=== PATIENT | male | born 1985 | race Caucasian/White ===

== ENCOUNTER → 2018-03-27 | Outpatient (CLI) | payer OTHER | LOC: EDSTATUS 16:00 → GIMAGING 19:01 | PROVIDERS: ATTEND Registered Nurse | DX: R06.89 Other abnormalities of breathing (principal); R06.02 Shortness of breath | CPT/HCPCS: 71046-PO ==

== ENCOUNTER 2018-03-28 22:08 | Emergency (ER) | payer SELFPAY ==
[2018-03-28] MEDS ORDERED: LORazepam 1 MG TAB PO ONE (22:48)
--- NOTE | 2018-03-28 22:48 | EDPHY ---
H & P Smoking Status: Never smoked Time Seen by Provider: 03/28/18 22:25 HPI/ROS: CHIEF COMPLAINT: Shortness of breath and trouble focusing HISTORY OF PRESENT ILLNESS: Patient is a 32-year-old male here with no significant past medical history other than stating he has a history of feeling generally anxious now complaining of shortness of breath at trouble focusing for the last week. States that he moved into a new house and has since had a cough and sinus congestion and shortness of breath. He has also experienced intermittent episodes of his heart racing and feeling extremely anxious. He has no known history of panic attacks or the cardiopulmonary disease. He takes no drugs but does drink alcohol socially. Takes no prescribed medications. Denies any vision changes or recent trauma to the head or chest. Denies history of asthma. He was seen at urgent care by his primary care doctor and they have tried prescribing him albuterol and Ativan. He tried albuterol and this made his anxiety worse. 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 REVIEW OF SYSTEMS: Constitutional: No fever, no chills. Eyes: No discharge. ENT: No sore throat. Cardiovascular: No chest pain, no palpitations. Respiratory: No cough, no shortness of breath. Gastrointestinal: No abdominal pain, no vomiting. Genitourinary: No hematuria. Musculoskeletal: No back pain. Skin: No rashes. Neurological: No headache. (Edouard Bartlett) Physical Exam: General Appearance: Alert and no distress. Eyes: Pupils equal and round no injection. Respiratory: Chest is nontender, lungs are clear to auscultation. Cardiac: regular rate and rhythm. Gastrointestinal: Abdomen is soft and nontender, no masses, bowel sounds normal. Musculoskeletal: Neck is supple and nontender. Extremities have full range of motion and are nontender. Skin: No rashes or lesions. (Edouard Bartlett) Constitutional: Initial Vital Signs Temperature (C) 36.4 C 03/28/18 22:11 Heart Rate 86 03/28/18 22:11 Respiratory Rate 16 03/28/18 22:11 Blood Pressure 132/99 H 03/28/18 22:11 O2 Sat (%) 95 03/28/18 22:11 O2 Delivery Mode Room Air Allergies/Adverse Reactions: No Known Allergies Allergy (Unverified 03/28/18 22:15) Home Medications: Medication Instructions Recorded Anastrozole [Arimidex] 1 mg PO 03/28/18 LORazepam [Ativan (*)] 0.5 mg PO BID PRN #10 tab 03/28/18 Levalbuterol Inhaler [Xopenex Hfa 1 puffs IH TID #1 mdi 03/28/18 Inhaler (*)] Medical Decision Making ED Course/Re-evaluation: Patient here with shortness of breath, racing thoughts, palpitations, lightheadedness, fogginess all worsening for the last week or so. Patient most likely has a reactive airway and is being exacerbated by a mold or dust in his new house. Additionally it seems he has an underlying anxiety disorder. He responded well to 1 mg of Ativan in the ER and feels improved. We will try him on Xopenex so he does not have worsening of his anxiety while treating his underlying reactive airway. He was given 10 mg of Decadron which hopefully will alleviate some of his sinus congestion and tightness in his chest. No evidence of ACS, arrhythmia, pulmonary embolism, hypoxia. Patient is stable, alert and oriented and nontoxic appearing at time of discharge. All his questions his 's questions and his parents questions were answered in the emergency room. (Edouard Bartlett) This patient was evaluated and managed by the physician medical support assistant. I have reviewed the documentation and agree with the plan of care.. I am the secondary supervising physician. (Angelina Thomas) - Data Points Laboratory Results: Laboratory Results 03/28/18 23:00 03/28/18 23:00 Medications Given: Discontinued Medications Dexamethasone (Decadron) 12 mg PO EDNOW ONE Stop: 03/28/18 23:56 Last Admin: 03/29/18 00:20 Dose: 12 mg Lorazepam (Ativan) 1 mg PO EDNOW ONE Stop: 03/28/18 22:49 Last Admin: 03/28/18 22:51 Dose: 1 mg Departure - Departure Disposition: Home, Routine, Self-Care Clinical Impression: Anxiety, Reactive airway disease Condition: Good Instructions: Generalized Anxiety Disorder (ED) Referrals: NONE *PRIMARY CARE P,. [Primary Care Provider] - As per Instructions [facility],. [Clinic] - As per Instructions Prescriptions: Levalbuterol Inhaler [Xopenex Hfa Inhaler (*)] 1 puffs IH TID #1 mdi LORazepam [Ativan (*)] 0.5 mg PO BID PRN #10 tab PRN Reason: Anxiety
--- NOTE | 2018-03-28 23:13 | CPEKG ---
Test Reason : OPEN Blood Pressure : / mmHG Vent. Rate : 071 BPM Atrial Rate : 070 BPM P-R Int : 171 ms QRS Dur : 094 ms QT Int : 357 ms P-R-T Axes : 066 078 010 degrees QTc Int : 388 ms Sinus rhythm Confirmed by Angelina Thomas ([id number]) on 03/28/2018 11:12:40 PM Referred By: Confirmed By:Angelina Thomas
[2018-03-28 23:28] LABS: PLATELET COUNT 253 10^3/uL (150-400)
[2018-03-28] MEDS ORDERED: DEXAMETHASONE 4 MG TAB PO ONE (23:55)
[2018-03-29 00:25] VITALS: BP 128/77
== END 2018-03-29 00:25 | disposition home or self-care (01) ==
DX: F41.9 Anxiety disorder, unspecified (principal); J45.909 Unspecified asthma, uncomplicated

== ENCOUNTER 2018-04-15 14:26 | Emergency (ER) | payer OTHER ==
--- NOTE | 2018-04-15 14:40 | EDPHY ---
HPI/HX/ROS/PE/MDM Narrative: CHIEF COMPLAINT: "Tight" breathing HPI: The patient is a 32 y/o male complaining of "tight" breathing and worsening heart burn for the past 3 weeks. Three weeks ago the symptoms began after working out. When the symptoms initially began he presented to the emergency department and had a chest x-ray which revealed reactive airway disease. During this visit his symptoms were improved with Decadron and Ativan; he was also prescribed an inhaler. After presenting to the emergency department he went to [place] for 2 weeks for his new job. While there, his symptoms continued to progress and not improve. He did have one coughing fit, but did not go to the ED. He now reports that the heartburn is not improving, which has not occurred in the past. The heartburn starts when he wakes up and radiates up to his throat. He tried taking Nexium, Zantac, Dexilant, and Tums which has not improved his symptoms. Currently he feels like his chest is heavy and it feels "tight" to breathe. He denies any specific chest pain. The tight breathing is worst at night and does not change with changes in standing, sitting or lying down. This tight breathing also has an associated cough with some mucous. He returned home from [place] 2 days ago and decided to present to the emergency department as he continues to not feel better and does not know what to do to feel better. No fever, headache, chest pain, abdominal pain, urinary or bowel complaints, numbness, paresthesias. REVIEW OF SYSTEMS: Aside from elements discussed in the HPI, a comprehensive 10-point review of systems was reviewed and is negative. PMH: Denies SOCIAL HISTORY: Friend at bedside, employed as a salesman, lives in [place] PHYSICAL EXAM: General: Patient is alert, in no acute distress. ENT: Eyes are normal to inspection. ENT inspection normal. Neck: Normal inspection. Full range of motion. Respiratory: No respiratory distress. Breath sounds normal bilaterally. Cardiovascular: Regular rate and rhythm. Strong peripheral pulses. Normal cap refill. Abdomen: The abdomen is nontender to palpation. There are no peritoneal signs. There are normal bowel sounds. Back: Normal to inspection. No tenderness to palpation. Skin: Normal color. No rash. Warm and dry. Extremities: Normal appearance. Full range of motion. Neuro: Oriented x3. Normal motor function. Normal sensory function. ED Course: 1456: EKG was ordered and interpreted by myself. Please see [employer] system for official reading. 1506: Patient's POC troponin is negative. Chest x-ray: Normal. No significant change from prior. 1532: Reassessed patient and discussed laboratory and imaging findings. I have prescribed him Dexilant for his GERD. I have advised him to follow up with a tenant selector and internal communications specialist. Return precautions provided; patient is comfortable with this plan. MDM: This is a young healthy male with no cardiac risk factors who has been experiencing chest tightness and some dyspnea for several weeks. We performed an extensive workup which is negative. I see no evidence of TAD, ACS, PE, PTX, PNA. - Data Points Imaging: I viewed and interpreted images myself Laboratory Results: Laboratory Results 04/15/18 15:00 04/15/18 15:00 04/15/18 04/15/18 04/15/18 15:06 15:00 15:00 WBC RBC Hgb Hct MCV MCH MCHC RDW Plt Count MPV Neut % (Auto) Lymph % (Auto) [place] % (Auto) Eos % (Auto) Baso % (Auto) Nucleat RBC Rel Count Absolute Neuts (auto) Absolute Lymphs (auto) Absolute Monos (auto) Absolute Eos (auto) Absolute Basos (auto) Absolute Nucleated RBC Immature Gran % Immature Gran # D-Dimer < 0.27 ug/mLFEU ug/mLFEU (0.00-0.50) Sodium 140 mEq/L mEq/L (135-145) Potassium 4.4 mEq/L mEq/L (3.3-5.0) Chloride 101 mEq/L mEq/L (97-110) Carbon Dioxide 28 mEq/l mEq/l (22-31) Anion Gap 11 mEq/L mEq/L (6-14) BUN 16 mg/dL mg/dL (7-23) Creatinine 1.2 mg/dL mg/dL (0.7-1.3) Estimated GFR > 60 Glucose 92 mg/dL mg/dL (70-100) Calcium 10.0 mg/dL mg/dL (8.5-10.4) Total Bilirubin 0.6 mg/dL mg/dL (0.1-1.4) Conjugated Bilirubin 0.3 mg/dL mg/dL (0.0-0.5) Unconjugated Bilirubin 0.3 mg/dL mg/dL (0.0-1.1) AST 27 IU/L IU/L (17-59) ALT 46 IU/L IU/L (21-72) Alkaline Phosphatase 51 IU/L IU/L (38-126) POC Troponin I 0.00 ng/mL ng/mL (0.00-0.08) Total Protein 7.5 g/dL g/dL (6.3-8.2) Albumin 4.4 g/dL g/dL (3.5-5.0) Lipase 99 IU/L IU/L (23-300) 04/15/18 15:00 WBC 6.49 10^3/uL 10^3/uL (3.80-9.50) RBC 4.83 10^6/uL 10^6/uL (4.40-6.38) Hgb 14.9 g/dL g/dL (13.7-17.5) Hct 40.8 % % (40.0-51.0) MCV 84.5 fL fL (81.5-99.8) MCH 30.8 pg pg (27.9-34.1) MCHC 36.5 g/dL g/dL (32.4-36.7) RDW 12.4 % % (11.5-15.2) Plt Count 223 10^3/uL 10^3/uL (150-400) MPV 9.6 fL fL (8.7-11.7) Neut % (Auto) 53.8 % % (39.3-74.2) Lymph % (Auto) 31.1 % % (15.0-45.0) [place] % (Auto) 11.4 % % (4.5-13.0) Eos % (Auto) 2.8 % % (0.6-7.6) Baso % (Auto) 0.6 % % (0.3-1.7) Nucleat RBC Rel Count 0.0 % % (0.0-0.2) Absolute Neuts (auto) 3.49 10^3/uL 10^3/uL (1.70-6.50) Absolute Lymphs (auto) 2.02 10^3/uL 10^3/uL (1.00-3.00) Absolute Monos (auto) 0.74 10^3/uL 10^3/uL (0.30-0.80) Absolute Eos (auto) 0.18 10^3/uL 10^3/uL (0.03-0.40) Absolute Basos (auto) 0.04 10^3/uL 10^3/uL (0.02-0.10) Absolute Nucleated RBC 0.00 10^3/uL 10^3/uL (0-0.01) Immature Gran % 0.3 % % (0.0-1.1) Immature Gran # 0.02 10^3/uL 10^3/uL (0.00-0.10) D-Dimer Sodium Potassium Chloride Carbon Dioxide Anion Gap BUN Creatinine Estimated GFR Glucose Calcium Total Bilirubin Conjugated Bilirubin Unconjugated Bilirubin AST ALT Alkaline Phosphatase POC Troponin I Total Protein Albumin Lipase Point of Care Test Results: Chemistry 04/15/18 15:06 POC Troponin I 0.00 ng/mL ng/mL (0.00-0.08) General Time Seen by Provider: 04/15/18 14:39 Initial Vital Signs: Initial Vital Signs Temperature (C) 36.7 C 04/15/18 14:28 Heart Rate 88 04/15/18 14:28 Respiratory Rate 16 04/15/18 14:28 Blood Pressure 144/101 H 04/15/18 14:28 O2 Sat (%) 99 04/15/18 14:28 O2 Delivery Mode Room Air Allergies/Adverse Reactions: No Known Allergies Allergy (Verified 04/15/18 14:28) Home Medications: Medication Instructions Recorded Anastrozole [Arimidex] 1 mg PO 03/28/18 Levalbuterol Inhaler [Xopenex Hfa 1 puffs IH TID #1 mdi 03/28/18 Inhaler (*)] Dexlansoprazole [Dexilant] 30 mg PO DAILY #15 04/15/18 Dexlansoprazole [Dexilant] 60 mg PO DAILY #10 04/15/18 Esomeprazole Magnesium [Nexium] 20 mg PO 04/15/18 busPIRone [Buspar (*)] 04/15/18 Departure - Departure Disposition: Home, Routine, Self-Care Clinical Impression: Dyspnea, GERD (gastroesophageal reflux disease) Condition: Good Instructions: Gastroesophageal Reflux Disease in Children (ED), Dyspnea (ED) Additional Instructions: Take Dexilant as prescribed. Follow-up with a internal communications specialist and a tenant selector regarding your symptoms. Follow-up with your primary doctor within 72 hours. Return to the Emergency Department for fever, chest pain, shortness of breath, increasing pain or other worsening of condition. Referrals: Ben Lambert MD [Medical Doctor] - As per Instructions Perry Mittal MD [Medical Doctor] - As per Instructions Prescriptions: Dexlansoprazole [Dexilant] 30 mg PO DAILY #15 cap. Dexlansoprazole [Dexilant] 60 mg PO DAILY #10 cap. Report Scribed for: Ben Askew Report Scribed by: Omayra Olivas Date of Report: 04/15/18 Time of Report: 14:40 Physician Review and Approval Statement: Portions of this note were transcribed by an ED scribe. I personally performed the history, physical exam, and medical decision making; and confirm the accuracy of the information in the transcribed note.
[2018-04-15 15:14] LABS: PLATELET COUNT 223 10^3/uL (150-400)
[2018-04-15 15:55] VITALS: BP 134/94
--- NOTE | 2018-04-15 21:06 | CPEKG ---
Test Reason : OPEN Blood Pressure : / mmHG Vent. Rate : 065 BPM Atrial Rate : 065 BPM P-R Int : 166 ms QRS Dur : 094 ms QT Int : 366 ms P-R-T Axes : 058 076 017 degrees QTc Int : 381 ms Sinus rhythm Confirmed by Ben Askew ([id number]) on 04/15/2018 9:05:34 PM Referred By: Confirmed By:Ben Askew
== END 2018-04-15 15:54 | disposition home or self-care (01) ==
DX: K21.9 Gastro-esophageal reflux disease without esophagitis (principal); R06.00 Dyspnea, unspecified
CPT/HCPCS: 84484-PO

== ENCOUNTER 2018-04-20 11:21 | Emergency (ER) | payer OTHER ==
[2018-04-20] MEDS ORDERED: NS 1,000 ML IV ONE (11:45)
--- NOTE | 2018-04-20 11:45 | EDPHY ---
General Time Seen by Provider: 04/20/18 11:35 Narrative: CHIEF COMPLAINT: Throat pain, my doctor sent me here HISTORY OF PRESENT ILLNESS: Patient presents private vehicle with complaints of throat pain and "my doctor sent me here." He states he has had "esophagus pain for weeks." Gradual onset 2- 3 weeks ago. Constant duration. Rated as severe at times. [id number] other times. He describes it as a burning-type pain. Never resolved. He has reportedly been seen several times for this. He states that he has a history reflux but this is different. He is taking Dexilant, Zantac, Nexium, Carafate with minimal improvement. He reports being seen by GI physician with reportedly normal upper GI in the past 10 days. He reports being sent here for CT scan of the neck as his symptoms are refractory to medications. No chest pain. No shortness of breath. No abdominal pain. No postprandial pain. He has been tolerating some liquids and solids. No vomiting. No fever. He denies any alcohol dependency or abuse. No other associated complaints or modifying factors REVIEW OF SYSTEMS: 10 systems were reviewed and negative with the exception of the elements mentioned in the history of present illness. PCP: Dr. Americo Herrera SPECIALISTS: Dr. Veloz, gastroenterology PAST MEDICAL HISTORY: Reflux, anxiety PAST SURGICAL HISTORY: No surgical history SOCIAL HISTORY: Nonsmoker. Rare alcohol use. Rare marijuana use. Lives independently. FAMILY HISTORY: Noncontributory EXAMINATION: General Appearance: Alert, no distress. Ambulatory. Speaking in full sentences. Head: normocephalic, atraumatic Eyes: Pupils equal and round, no conjunctival pallor or injection ENT, Mouth: Mucous membranes moist. Uvula is midline. Airway widely patent. No pharyngeal erythema or edema. No exudate. No asymmetry Neck: Normal inspection, supple, non-tender. No crepitus. Midline trachea. Respiratory: Lungs are clear to auscultation Cardiovascular: Regular rate and rhythm. No murmur Gastrointestinal: Abdomen is soft and nontender Back: non-tender, no bony abnormalities Neurological: A&O, nonfocal, normal gait Skin: Warm and dry, no rash Extremities: Nontender, no pedal edema Psychiatric: Mood and affect normal DIFFERENTIAL DIAGNOSES: Including but not limited to esophagitis, reflux, retropharyngeal abscess, MDM: 11:45 a.m. Esophageal and throat pain over the past 3 weeks. No trismus. No abnormal appearance of the posterior pharynx. No chest pain or abdominal pain. His vital signs are within normal limits. He was sent here by physician for CT scan of the neck. IV will be established. Laboratory studies and CT scan obtained. No acute distress. 1:15 p.m. Laboratory studies are unremarkable. CT scan pending. 2:00 p.m. Notified by radiologist. No abnormality of the CT scan of the soft tissue of the neck. 2:15 p.m. Patient re-evaluated. We discussed his normal laboratory studies and no positive finding on his CT of the neck soft tissue. We discussed GI cocktail and symptomatic viscous lidocaine. We discussed follow up outpatient with Ear Nose and Throat physician. He is dissatisfied with the lack of diagnosis but comfortable this plan. He has no chest pain. Vital signs are within normal limits. I do feel he is comfortable for discharge home. SUPERVISION: This patient was independently evaluated without direct involvement of or examination by the attending physician. CONSULTATION: None. ENT referral - Diagnostics Imaging Results: Imaging Impressions Neck CT 04/20/18 11:45 Impression: No anatomic abnormality corresponding to upper throat pain. Findings and recommendations discussed with Keo Melton at 1:50 p.m. on 2017. Final report concurs with initial preliminary interpretation. - History Smoking Status: Never smoked - Objective Vital Signs: Initial Vital Signs Temperature (C) 98.1 F 04/20/18 11:28 Heart Rate 92 04/20/18 11:28 Respiratory Rate 16 04/20/18 11:28 Blood Pressure 129/87 H 04/20/18 11:28 O2 Sat (%) 97 04/20/18 11:28 O2 Delivery Mode Room Air Allergies/Adverse Reactions: No Known Allergies Allergy (Verified 04/15/18 14:28) Home Medications: Medication Instructions Recorded Dexlansoprazole [Dexilant] 30 mg PO DAILY #15 cap 04/15/18 Dexlansoprazole [Dexilant] 60 mg PO DAILY #10 cap 04/15/18 Esomeprazole Magnesium [Nexium] 20 mg PO 04/15/18 Lidocaine 2% Viscous 10 ml MM TID PRN #100 ml 04/20/18 Laboratory Results: Laboratory Results 04/20/18 12:05 04/20/18 12:05 04/20/18 04/20/18 12:05 12:05 WBC 6.42 10^3/uL 10^3/uL (3.80-9.50) RBC 5.37 10^6/uL 10^6/uL (4.40-6.38) Hgb 16.4 g/dL g/dL (13.7-17.5) Hct 44.2 % % (40.0-51.0) MCV 82.3 fL fL (81.5-99.8) MCH 30.5 pg pg (27.9-34.1) MCHC 37.1 g/dL H g/dL (32.4-36.7) RDW 12.1 % % (11.5-15.2) Plt Count 258 10^3/uL 10^3/uL (150-400) MPV 9.5 fL fL (8.7-11.7) Neut % (Auto) 55.2 % % (39.3-74.2) Lymph % (Auto) 27.9 % % (15.0-45.0) [place] % (Auto) 13.6 % H % (4.5-13.0) Eos % (Auto) 2.2 % % (0.6-7.6) Baso % (Auto) 0.8 % % (0.3-1.7) Nucleat RBC Rel Count 0.0 % % (0.0-0.2) Absolute Neuts (auto) 3.55 10^3/uL 10^3/uL (1.70-6.50) Absolute Lymphs (auto) 1.79 10^3/uL 10^3/uL (1.00-3.00) Absolute Monos (auto) 0.87 10^3/uL H 10^3/uL (0.30-0.80) Absolute Eos (auto) 0.14 10^3/uL 10^3/uL (0.03-0.40) Absolute Basos (auto) 0.05 10^3/uL 10^3/uL (0.02-0.10) Absolute Nucleated RBC 0.00 10^3/uL 10^3/uL (0-0.01) Immature Gran % 0.3 % % (0.0-1.1) Immature Gran # 0.02 10^3/uL 10^3/uL (0.00-0.10) Sodium 138 mEq/L mEq/L (135-145) Potassium 4.0 mEq/L mEq/L (3.3-5.0) Chloride 101 mEq/L mEq/L (97-110) Carbon Dioxide 25 mEq/l mEq/l (22-31) Anion Gap 12 mEq/L mEq/L (6-14) BUN 21 mg/dL mg/dL (7-23) Creatinine 1.3 mg/dL mg/dL (0.7-1.3) Estimated GFR > 60 Glucose 86 mg/dL mg/dL (70-100) Calcium 10.1 mg/dL mg/dL (8.5-10.4) Total Bilirubin 1.3 mg/dL mg/dL (0.1-1.4) Conjugated Bilirubin 0.2 mg/dL mg/dL (0.0-0.5) Unconjugated Bilirubin 1.1 mg/dL mg/dL (0.0-1.1) AST 36 IU/L IU/L (17-59) ALT 37 IU/L IU/L (21-72) Alkaline Phosphatase 61 IU/L IU/L (38-126) Total Protein 8.4 g/dL H g/dL (6.3-8.2) Albumin 4.9 g/dL g/dL (3.5-5.0) Lipase 127 IU/L IU/L (23-300) Medications Given: Discontinued Medications Al Hydroxide/Mg Hydroxide (Maalox Susp) 30 ml PO ONCE ONE Stop: 04/20/18 14:14 Last Admin: 04/20/18 14:33 Dose: 30 ml Hyoscyamine Sulfate (Levsin, Hyomax-Sl) 0.25 mg PO ONCE ONE Stop: 04/20/18 14:14 Last Admin: 04/20/18 14:33 Dose: 0.25 mg Sodium Chloride (Ns) 1,000 mls @ 0 mls/hr IV EDNOW ONE; Wide Open PRN Reason: Protocol Stop: 04/20/18 11:46 Last Admin: 04/20/18 12:07 Dose: 1,000 mls Lidocaine (Lidocaine 2% Viscous) 15 ml PO ONCE ONE Stop: 04/20/18 14:14 Last Admin: 04/20/18 14:33 Dose: 15 ml Departure - Departure Disposition: Home, Routine, Self-Care Clinical Impression: Esophageal pain Condition: Good Instructions: Esophagitis (ED) Additional Instructions: 1. Discussed lidocaine and Mylanta as needed 3 times daily 2. Follow up with the on-call ENT physician as needed for further care 3. ED precautions for chest pain, shortness of breath, vomiting or intolerance of food or liquids Referrals: Americo Herrera MD [Primary Care Provider] - As per Instructions Camron Jackson MD [Medical Doctor] - As per Instructions Prescriptions: Lidocaine 2% Viscous 10 ml MM TID PRN #100 ml PRN Reason: Throat pain/esophageal pain
[2018-04-20 12:19] LABS: PLATELET COUNT 258 10^3/uL (150-400)
[2018-04-20] MEDS ORDERED: IOPAMIDOL (ISOVUE-300) 100 ML BTL ONE (12:44)
[2018-04-20] MEDS ORDERED: LIDOCAINE 2% VISCOUS 15 ML UDCUP PO ONE (14:13)
[2018-04-20] MEDS ORDERED: HYOSCYAMINE SULFATE 0.125 MG TAB PO ONE (14:13)
[2018-04-20] MEDS ORDERED: MAG HYDROX/AL HYDROX/SIMETH 30 ML UDCUP PO ONE (14:13)
[2018-04-20 14:35] VITALS: BP 127/93
== END 2018-04-20 14:40 | disposition home or self-care (01) ==
DX: R10.13 Epigastric pain (principal); E86.9 Volume depletion, unspecified
CPT/HCPCS: Q9967

== ENCOUNTER 2018-04-27 13:35 | Emergency (ER) | payer OTHER ==
--- NOTE | 2018-04-27 14:46 | EDPHY ---
H & P Stated Complaint: Elev HR since yesterday, denies CP/SOB/weakness. Time Seen by Provider: 04/27/18 14:45 HPI/ROS: CHIEF COMPLAINT: Palpitations HISTORY OF PRESENT ILLNESS: The patient presents to the ED for evaluation of tachycardia. The patient reports he has been experiencing a heart rate 110-120 over the past several days. He denies any significant chest pain or shortness of breath. The patient recently started taking an amphetamine salt and desipramine. The patient does have a history of chronic dyspepsia. He has been having some issues with insomnia and indigestion. The patient denies any cough or congestion. He denies any asymmetric calf pain or swelling. He denies pleuritic chest pain. REVIEW OF SYSTEMS: A comprehensive 10 point review of systems is otherwise negative aside from elements mentioned in the history of present illness. Source: Patient Exam Limitations: No limitations - Personal History Current Tetanus/Diphtheria Vaccine: Yes - Medical/Surgical History Hx Asthma: No Hx Chronic Respiratory Disease: No Hx Diabetes: No Hx Cardiac Disease: No Hx Renal Disease: No Hx Cirrhosis: No Hx Alcoholism: No Hx HIV/AIDS: No Hx Splenectomy or Spleen Trauma: No Other PMH: anxiety - Social History Smoking Status: Never smoked - Physical Exam Exam: General Appearance: Alert, no distress Eyes: Pupils equal and round no pallor or injection ENT, Mouth: Mucous membranes moist Respiratory: There are no retractions, lungs are clear to auscultation Cardiovascular: Regular rate and rhythm Gastrointestinal: Abdomen is soft and nontender, no masses, bowel sounds normal Neurological: A&O, normal motor function, normal sensory exam, normal cranial nerves Skin: Warm and dry, no rashes Musculoskeletal: Neck is supple nontender Extremities: symmetrical, full range of motion Constitutional: Initial Vital Signs Temperature (C) 36.8 C 04/27/18 13:55 Heart Rate 123 H 04/27/18 13:55 Respiratory Rate 18 04/27/18 13:55 Blood Pressure 129/88 H 04/27/18 13:55 O2 Sat (%) 98 04/27/18 13:55 O2 Delivery Mode Room Air Allergies/Adverse Reactions: No Known Allergies Allergy (Verified 04/27/18 13:54) Home Medications: Medication Instructions Recorded Dexlansoprazole [Dexilant] 30 mg PO DAILY #15 04/15/18 Dexlansoprazole [Dexilant] 60 mg PO DAILY #10 04/15/18 Esomeprazole Magnesium [Nexium] 20 mg PO 04/15/18 Lidocaine 2% Viscous 10 ml MM TID PRN #100 ml 04/20/18 Medical Decision Making - Diagnostics EKG Interpretation: EKG: Complete interpretation has been separately recorded in the [facility] archive. Summary impression: Sinus tachycardia, rate 108, nonspecific T-wave changes noted Imaging Results: Imaging Impressions Chest X-Ray 04/27/18 14:46 Impression: No acute findings in the chest. ED Course/Re-evaluation: The patient presents to the ED with a slightly elevated heart rate in the setting of insomnia, fatigue and dyspepsia. He is also on desipramine and the amphetamine salts. The patient has no ischemic complaints. His EKG demonstrates only a sinus tachycardia with nonspecific ST T wave changes. The patient's D-dimer is negative. I do feel this adequately excludes pulmonary embolism in this low risk by Wells criteria patient. The patient was placed on a monitor worker. His heart rate remained in the 80- 90 range with a normal blood pressure. At this point time I do feel the patient is likely having symptoms secondary to relatively poor sleep, slight dehydration and new medications. The patient will be advised to follow up with his primary care provider. He is discharged home with customary aftercare instructions and return precautions. Differential Diagnosis: Differential diagnosis considered includes dehydration, anemia, metabolic derangement, pulmonary embolism, pneumonia, pneumothorax, arrhythmia - Data Points Laboratory Results: Laboratory Results 04/27/18 14:51 04/27/18 14:51 04/27/18 04/27/18 04/27/18 14:51 14:51 14:51 WBC 5.83 10^3/uL 10^3/uL (3.80-9.50) RBC 5.35 10^6/uL 10^6/uL (4.40-6.38) Hgb 16.3 g/dL g/dL (13.7-17.5) Hct 44.1 % % (40.0-51.0) MCV 82.4 fL fL (81.5-99.8) MCH 30.5 pg pg (27.9-34.1) MCHC 37.0 g/dL H g/dL (32.4-36.7) RDW 12.1 % % (11.5-15.2) Plt Count 256 10^3/uL 10^3/uL (150-400) MPV 9.9 fL fL (8.7-11.7) Neut % (Auto) 56.2 % % (39.3-74.2) Lymph % (Auto) 29.2 % % (15.0-45.0) [place] % (Auto) 11.5 % % (4.5-13.0) Eos % (Auto) 1.9 % % (0.6-7.6) Baso % (Auto) 1.0 % % (0.3-1.7) Nucleat RBC Rel Count 0.0 % % (0.0-0.2) Absolute Neuts (auto) 3.28 10^3/uL 10^3/uL (1.70-6.50) Absolute Lymphs (auto) 1.70 10^3/uL 10^3/uL (1.00-3.00) Absolute Monos (auto) 0.67 10^3/uL 10^3/uL (0.30-0.80) Absolute Eos (auto) 0.11 10^3/uL 10^3/uL (0.03-0.40) Absolute Basos (auto) 0.06 10^3/uL 10^3/uL (0.02-0.10) Absolute Nucleated RBC 0.00 10^3/uL 10^3/uL (0-0.01) Immature Gran % 0.2 % % (0.0-1.1) Immature Gran # 0.01 10^3/uL 10^3/uL (0.00-0.10) D-Dimer < 0.27 ug/mLFEU ug/mLFEU (0.00-0.50) Sodium 139 mEq/L mEq/L (135-145) Potassium 3.9 mEq/L mEq/L (3.3-5.0) Chloride 100 mEq/L mEq/L (97-110) Carbon Dioxide 26 mEq/l mEq/l (22-31) Anion Gap 13 mEq/L mEq/L (6-14) BUN 15 mg/dL mg/dL (7-23) Creatinine 1.3 mg/dL mg/dL (0.7-1.3) Estimated GFR > 60 Glucose 95 mg/dL mg/dL (70-100) Calcium 10.1 mg/dL mg/dL (8.5-10.4) Departure - Departure Disposition: Home, Routine, Self-Care Clinical Impression: Tachycardia Condition: Good Instructions: Tachycardia (ED) Additional Instructions: 1. The testing done in the emergency department today demonstrates no significant abnormality. 2. I do suspect your symptoms are likely secondary to the new medications you are taking, insomnia and likely relative dehydration. 3. Please return to the ED for any markedly worsening symptoms, chest pain, difficulty breathing or other concerns. 4. Please schedule a follow-up appointment with your primary care provider for a recheck in a week. Referrals: Americo Herrera MD [Primary Care Provider] - As per Instructions
[2018-04-27 15:20] LABS: PLATELET COUNT 256 10^3/uL (150-400)
--- NOTE | 2018-04-27 15:32 | CPEKG ---
Test Reason : OPEN Blood Pressure : / mmHG Vent. Rate : 108 BPM Atrial Rate : 109 BPM P-R Int : 175 ms QRS Dur : 093 ms QT Int : 322 ms P-R-T Axes : 060 103 -19 degrees QTc Int : 432 ms Sinus tachycardia Probable right ventricular hypertrophy Borderline T abnormalities, inferior leads Confirmed by Camron Nelson ([id number]) on 04/27/2018 3:32:39 PM Referred By: Confirmed By:Camron Nelson
[2018-04-27 16:25] VITALS: BP 104/75
== END 2018-04-27 16:23 | disposition home or self-care (01) ==
DX: R00.0 Tachycardia, unspecified (principal); F41.9 Anxiety disorder, unspecified
CPT/HCPCS: 84484-PO